=== PATIENT | male | born 1990 | race Caucasian/White ===

== ENCOUNTER 2016-09-24 17:03 | Emergency (ER) | payer OTHER ==
--- NOTE | 2016-09-24 19:45 | UC ---
UC General HPI - HPI Summary HPI Summary: The patient comes in today for: 1. Right index finger pain: Onset: 4 days ago. Palliative/provocative: Movement made the pain of the finger worse initially, but then Quality: slight burning when touching. Region: Lateral side of the finger is worse with redness. Severity: 10 Time: Only pain with touching or bending. Associated symptoms: Event: HE fell off the treadmill and jammed his finger. He does not remember how he jammed it. There was pain right at that time. Previous treatment: He iced the joint and took ibuprofen 400 mg daily for this. * - History of Current Complaint Chief Complaint: [place] Stated Complaint: INFLAMED SPOT ON FINGER Time Seen by Provider: 09/24/16 19:34 Hx Obtained From: Patient - Allergy/Home Medications Allergies/Adverse Reactions: Allergies Allergy/AdvReac Type Severity Reaction Status Date / Time No Known Allergies Allergy Verified 01/01/15 15:48 PMH/Surg Hx/FS Hx/Imm Hx Previously Healthy: Yes Endocrine History Of: Denies: Diabetes, Thyroid Disease, Hyperthyroidism, Hypothyroidism, Dyslipidemia Cardiovascular History Of: Denies: Cardiac Disorders, Hypertension, Pacemaker/ICD, Myocardial Infarction , Congestive Heart Failure, Atrial Fibrillation, Deep Vein Thrombosis, Bleeding Disorders Respiratory History Of: Denies: COPD, Asthma, Bronchitis, Pneumonia, Pulmonary Embolism GI/ History Of: Denies: Gastroesophageal Reflux, Ulcer, Gastrointestinal Bleed, Gall Bladder Disease, Kidney Stones, Diverticulitis, Renal Disease, Urosepsis Neurological History Of: Denies: TIA, CVA, Dementia, Seizures, Migraine Psychological History Of: Reports: Anxiety - No Rx., Depression Denies: Bipolar Disorder, Schizophrenia, Post Traumatic Stress Disorder Cancer History Of: Denies: Lung Cancer, Colorectal Cancer, Breast Cancer, Prostate Cancer, Cervical Cancer Other History Of: Negative For: HIV, Hepatitis B, Hepatitis C, Anticoagulant Therapy - Surgical History Surgical History: None - Family History Known Family History: Positive: Hypertension Negative: Cardiac Disease - Social History Occupation: Employed Full-time Lives: With Family Alcohol Use: Rare Substance Use Type: Marijuana Substance Use Comment - Amount & Last Used: occasional marijuana Smoking Status (MU): Never Smoked Tobacco - Immunization History Most Recent Influenza Vaccination: 2011 Most Recent Tetanus Shot: unk Most Recent Pneumonia Vaccination: never Review of Systems Constitutional: Negative Skin: Rash Eyes: Negative ENT: Negative Respiratory: Negative Cardiovascular: Negative Gastrointestinal: Negative Genitourinary: Negative Musculoskeletal: Arthralgia, Myalgia All Other Systems Reviewed And Are Negative: Yes Physical Exam Triage Information Reviewed: Yes Appearance: Well-Appearing, No Pain Distress, Well-Nourished Vital Signs: Initial Vital Signs Temp 98.6 F 09/24/16 19:09 Pulse 102 09/24/16 19:09 Resp 18 09/24/16 19:09 BP 176/86 09/24/16 19:09 Pulse Ox 100 09/24/16 19:09 Vital Signs Reviewed: Yes Eyes: Positive: Conjunctiva Clear. Negative: Discharge ENT: Positive: Hearing grossly normal. Negative: Pharyngeal erythema, Nasal congestion, Nasal drainage, TM bulging, TM dull, TM red, Tonsillar swelling, Tonsillar exudate Dental: Negative: Gross Decay/Caries @, Dental Fracture @ Neck: Positive: Supple, Nontender, No Lymphadenopathy. Negative: Nuchal Rigidity Respiratory: Positive: Lungs clear, No respiratory distress, No accessory muscle use. Negative: Crackles, Wheezing Cardiovascular: Positive: RRR, No Murmur Abdomen Description: Positive: Nontender, No Organomegaly, Soft. Negative: Distended, Guarding Musculoskeletal: Positive: Strength Intact, Other: - The right index finger showed edema and erythema and some induration. He is able to move the middle and distal phalanx. Neurological: Positive: Alert, Muscle Tone Normal Psychological: Positive: Normal Response To Family, Age Appropriate Behavior, Consolable Skin: Positive: rashes. Negative: breakdown Diagnostics - Radiology No standard instances Xray Interpretation: No Acute Changes Radiology Interpretation Completed By: Radiologist Course/Dx - Course Course Of Treatment: Patient was told of the negative x-ray, and his condition being most likely a contusion. He did not want any medication or splinting. - Differential Dx - Multi-Symptom Provider Diagnoses: Contusion/sprain of the right index finger. Discharge - Discharge Plan Condition: Stable Disposition: HOME Patient Education Materials: Finger Sprain (ED), Contusion in Adults (ED) Referrals: Agustín Caldwell MD [Primary Care Provider] - If Needed
--- NOTE | 2016-09-24 20:14 | RAD ---
INDICATION: Pain second digit right hand COMPARISON: None TECHNIQUE: AP, lateral, and oblique views were obtained. FINDINGS: The bony structures, joint spaces, and soft tissues are normal for age. IMPRESSION: NO ACUTE FRACTURE.
[2016-09-24 20:32] VITALS: BP 174/97
== END 2016-09-24 20:32 | disposition home or self-care (01) ==
LOC: UCEAST 17:03
DX: S60.021A Contusion of right index finger without damage to nail, initial encounter (principal); S63.610A Unspecified sprain of right index finger, initial encounter; W19.XXXA Unspecified fall, initial encounter; Y93.A1 Activity, exercise machines primarily for cardiorespiratory conditioning; Y92.9 Unspecified place or not applicable
CPT/HCPCS: 73140; 99211; G0463